=== PATIENT | female | born 1965 | race Caucasian/White ===

== ENCOUNTER 2017-06-27 11:34 | Emergency (ER) | payer OTHER ==
[2017-06-27] MEDS ORDERED: ONDANSETRON 4 MG/2 ML VIAL IVP ONE (11:39)
[2017-06-27] MEDS ORDERED: ONDANSETRON 4 MG/2 ML VIAL ONE (11:40)
--- NOTE | 2017-06-27 11:41 | EDPHY ---
H & P Smoking Status: Never smoked Time Seen by Provider: 06/27/17 11:35 HPI/ROS: 52-year-old female presents complaining of left wrist pain and deformity, she was playing Frisbee and fell on an outstretched hand. She complains of tingling in her fingertips on the left. Review of systems As per HPI General no fever no chills no weakness HEENT no eye pain no eye discharge. No eye redness, no sore throat Respiratory no cough, no shortness of breath Cardiac no chest pain, no peripheral edema GI no abdominal pain, no diarrhea, no constipation, no nausea, no vomiting no flank pain, no hematuria, no dysuria Musculoskeletal no myalgias, positive joint pain Heme no easy bruising, no easy bleeding Endo no polyuria, no polydipsia Skin no rashes, no pruritus Neuro no syncope, no dizziness, no headaches Psych is no suicidal ideation, no homicidal ideation (Veronica Reece B) Past Medical/Surgical History: Noncontributory (Veronica Reece B) Social History: Denies alcohol or drug use (Veronica Reece B) Physical Exam: 52-year-old female Alert and oriented in acute distress secondary to left wrist pain, nontoxic appearance, afebrile Atraumatic normocephalic Neck no JVD Lungs clear to auscultation, no respiratory distress Heart regular rate and rhythm Extremities no cyanosis clubbing edema Except Left upper extremity Diffusely tender to palpation of wrist Obvious dinner fork deformity Good capillary refill Both radial and ulnar pulse palpable Good color to hand wrist forearm No tenderness at elbow or shoulder (Veronica Reece B) Constitutional: Initial Vital Signs Temperature (C) 36.5 C 06/27/17 11:45 Heart Rate 71 06/27/17 11:45 Respiratory Rate 18 06/27/17 11:45 Blood Pressure 108/80 06/27/17 11:45 O2 Sat (%) 100 06/27/17 11:45 O2 Delivery Mode Room Air Allergies/Adverse Reactions: hydrocodone Allergy (Verified 06/27/17 12:55) Home Medications: Medication Instructions Recorded Flaxseed Oil 10/29/15 IBUPROFEN 10/29/15 Multivitamin 10/29/15 Citalopram 06/27/17 Medical Decision Making - Diagnostics Imaging Results: Imaging Impressions Wrist X-Ray 06/27/17 11:35 Impression: Comminuted, shortened and dorsally angulate, distal radial intra- articular fracture. ED Course/Re-evaluation: Patient was seen and evaluated for left wrist pain after a fall while playing Frisbee. X-ray showed a distal comminuted radius with intra-articular involvement. The patient was transferred to [facility] Emergency Department to be seen by the orthopedic surgeon for likely closed reduction. While at [facility] patient was given morphine 4 mg and Dilaudid 1 mg with moderate relief. Impression Left distal radius fracture Left ulna fracture Plan Transfer to [facility] for orthopedic intervention. Patient placed in a temporary splint. (Veronica Reece) CHIEF COMPLAINT: Left wrist pain HISTORY OF PRESENT ILLNESS: 52-year-old female who presented to Dr. Sean walters at [facility] with a comminuted distal left radius fracture which is intra-articular. She is having some numbness in her hand. Dr. Sean walters called me and they do not have a C-arm at [facility] in order to reduce the fracture appropriately consequently she called Dr. Jewell from Orthopedics and transferred the patient here for Dr. Jewell to reduce the fracture with the use of the C-arm. Both the patient and doctor Mon have arrived. REVIEW OF SYSTEMS: A 10 point review of systems was performed and is negative with the exception of the elements mentioned in the history of present illness. PHYSICAL EXAM: HR, BP, O2 Sat, RR. Temp noted General Appearance: Alert, well hydrated, appropriate, and non-toxic appearing. Head: Atraumatic without scalp tenderness or obvious injury Eyes: Pupils equal, round, reactive to light and accommodation, EOMI, no trauma , no injection. Ears: Clear bilaterally, no perforation, normal landmarks Nose: Atraumatic, no rhinorrhea, clear. Throat: There is no erythema or exudates, no lesions, normal tonsils, mucus membranes moist. Neck: Supple, 2+ carotid upstroke, nontender, no lymphadenopathy. Respiratory: No retractions, no distress, no wheezes, and no accessory muscle use. Lungs are clear to auscultation bilaterally. Cardiovascular: Regular rate and rhythm, no murmurs, rubs, or gallops. Bilateral carotid, radial, dorsalis pedis, and posterior tibial pulses intact. Good capillary refill all extremities. Gastrointestinal: Abdomen is soft, nontender, non-distended, no masses, no rebound, no guarding, no peritoneal signs. Musculoskeletal: Splinted deformed right wrist fracture. Otherwise, Normal active ROM of all extremities, atraumatic. Neurological: Alert, appropriate, and interactive. The patient has normal DTRs and non-focal cranial nerves, motor, sensory, and cerebellar exam. Skin: No rashes, good turgor, no nodules on palpation. Past medical history: Noncontributory Past surgical history: Noncontributory Family history: Noncontributory Social history: , employed, does not abuse tobacco drugs or alcohol DIAGNOSTICS/PROCEDURES/CRITICAL CARE TIME: X-rays reviewed from [facility] with a distal comminuted right wrist fracture which is intra-articular DIFFERENTIAL DIAGNOSIS: The differential diagnosis for the patient's trauma included but was not limited to intracranial injury, long bone and pelvic bone fractures, spinal injury, intra-abdominal injury, and intra-thoracic injury. MEDICAL DECISION MAKING: Dr. Jewell from orthopedic surgeries here. He will perform a closed reduction of the right wrist and follow up with the patient. He has also ordered CT scan of the wrist. He will follow up on that CT scan and make final decision about whether not the patient requires surgical intervention or not. He is still here in the department and he stated that he would interpret the CT and discussed with the patient. (Homer Flowers) - Data Points Medications Given: Discontinued Medications Hydromorphone HCl (Dilaudid) 1 mg IVP EDNOW ONE Stop: 06/27/17 11:49 Last Admin: 06/27/17 11:57 Dose: 1 mg Morphine Sulfate (Morphine) 4 mg IVP EDNOW ONE Stop: 06/27/17 11:40 Last Admin: 06/27/17 11:43 Dose: 4 mg Morphine Sulfate (Morphine) 4 mg IVP EDNOW ONE Stop: 06/27/17 11:54 Last Admin: 06/27/17 11:54 Dose: 4 mg Ondansetron HCl (Zofran) 4 mg IVP EDNOW ONE Stop: 06/27/17 11:40 Last Admin: 06/27/17 11:43 Dose: 4 mg Departure - Departure Disposition: Home, Routine, Self-Care Clinical Impression: Colles' fracture of left radius, initial encounter for closed fracture Condition: Good Instructions: Wrist Fracture in Adults (ED) Referrals: Nicolasa Martinez [Primary Care Provider] - As per Instructions Dusty Jewell MD [Medical Doctor] - As per Instructions
[2017-06-27] MEDS ORDERED: HYDROmorphONE/DILAUDID 1 MG/ML INJ IVP ONE (11:48)
[2017-06-27 12:07] VITALS: RESP 18
[2017-06-27 12:58] VITALS: BP 103/61; PULSE 61; TEMP 97.9; O2SAT 96
--- NOTE | 2017-06-27 14:43 | PDCONSULT ---
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 Denies prior pain to the wrist. Had some subjective numbness at the time of injury but was also fairly anxious and thinks she may have been OK at the time but somewhat panicked. No LOC. No head hit. Pain with attempts to range L fingers. 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 12-15 EtOH drinks per week. No tobacco use. ROS: Multisystem review notes pt was at baseline for all except MSK per HPI. PE: AxOx3. Unlabored breathing. Hearing intact. BLE: no pain with movement. RUE: 5/5 EPL/APB/FDS/FDP2,5/IO/B/T. SILT A/R/U/M 2+ radial pulse LUE: gross deformity dorsiflexion of distal radius at fracture site. + edema. + EPL/APB/FDS/FDP2,5/IO, 4/5 B/T. SILT A/R/U/M with same intensity as Right side. 2+ radial pulse Imaging: Intra-articular left distal radius fracture with dorsal angulation and dorsal comminuted fragment. AP: 52y F D p/w Left intra-articular distal radius fracture - after discussing risks and benefits of hematoma block reduction attempt, patient wished to proceed with reduction attempt. - under fluoroguidance, we injected 10mL of a 1:1 1% lidocaine to 0.25% bupivicaine (both plain) solution into the fracture site. - once the block was setup, we manipulated the fracture and reduced it. immediately after the reduction, she still had intact sensation A/R/U/M and was moving the fingers much better and with less pain. Later on, she described some dorsal radial numbness, likely 2/2 hematoma block. She was counseled on monitoring this for expected resolution. - Post reduction XR showed height ~ 8mm, inclination ~14degrees, volat tilt 1 degree, minimal intra-articular stepoff except for small dorsal lunate facet fragment, but volar lunate facet mostly without stepoff. - We had a long discussion regarding nonop vs operative treatment of the fracturea and the risks and benefits involved. We discussed the risk of arthritis in the joint regardless of either path but the possibility that an improved anatomic reduction achieved with surgery might decrease that risk or prolong symptomatic onset. However, we also discussed the risk of surgery including infection, bleeding, tendon rupture, malunion, nonunion, and need for additional surgeries. - We discussed that radiographically, she could certainly be an operative case. However, the patient wishes to attempt a nonoperative management course. We discussed that if she displaces any further, then surgery would be our recommendation. However, if the reduction holds, she can try to treat this nonop. - She is to call for an xray appointment next week (films in the splint), which I can follow. - She is to see me in clinic in about two weeks for another set of films. - nonweightbearing LUE. - Sling for comfort - Elevate at rest, ice PRN - pain Rx per ED
[2017-06-27] MEDS ORDERED: OXYCODONE/APAP 5/325MG PREPACK#4 BTL TAKEHOME ONE ×2 (16:31→16:33)
== END 2017-06-27 16:37 | disposition home or self-care (01) ==
LOC: CED 11:34
PROC: 0PSJXZZ Reposition Left Radius, External Approach (ICD-10-PCS; principal; 2017-06-27)
DX: S52.532A Colles' fracture of left radius, initial encounter for closed fracture (principal); W18.39XA Other fall on same level, initial encounter; Y99.8 Other external cause status; Y93.74 Activity, frisbee
CPT/HCPCS: 73110-PO; 96374; A4565; J1170; J2405

== ENCOUNTER → 2017-12-07 | Outpatient (CLI) | payer OTHER | LOC: FIMAGING 10:56 | PROVIDERS: ATTEND Family Medicine | DX: Z12.31 Encounter for screening mammogram for malignant neoplasm of breast (principal) ==

== ENCOUNTER → 2018-08-08 | Outpatient (CLI) | payer OTHER | LOC: BMCIMAGING 14:36 | PROVIDERS: ATTEND Internal Medicine | DX: S62.626A Displaced fracture of middle phalanx of right little finger, initial encounter for closed fracture (principal) ==

== ENCOUNTER → 2018-08-15 | Outpatient (CLI) | payer OTHER | LOC: CIMAGING 09:20 | PROVIDERS: ATTEND Physician Assistant | DX: S62.626D Displaced fracture of middle phalanx of right little finger, subsequent encounter for fracture with routine healing (principal) | CPT/HCPCS: 73200-PO ==

== ENCOUNTER → 2018-09-01 | Outpatient (CLI) | payer OTHER | LOC: BMCIMAGING 08:46 | PROVIDERS: ATTEND Orthopaedic Surgery Hand Surgery | DX: S62.626D Displaced fracture of middle phalanx of right little finger, subsequent encounter for fracture with routine healing (principal) ==

== ENCOUNTER → 2018-09-30 | Outpatient (CLI) | payer OTHER | LOC: BMCIMAGING 15:02 | PROVIDERS: ATTEND Orthopaedic Surgery Hand Surgery | DX: S62.626D Displaced fracture of middle phalanx of right little finger, subsequent encounter for fracture with routine healing (principal); S62.632D Displaced fracture of distal phalanx of right middle finger, subsequent encounter for fracture with routine healing ==

== ENCOUNTER → 2018-11-04 | Outpatient (CLI) | payer OTHER | LOC: BMCLAB 15:26 | PROVIDERS: ATTEND Orthopaedic Surgery Hand Surgery | DX: S62.626A Displaced fracture of middle phalanx of right little finger, initial encounter for closed fracture (principal) ==

== ENCOUNTER → 2019-01-23 | Outpatient (CLI) | payer OTHER | LOC: FIMAGING 14:05 ==